=== PATIENT | female | born 1985 | race American Indian/Alaskan Native ===

== ENCOUNTER 2017-11-08 17:16 | Emergency (ER) | payer SELFPAY ==
[2017-11-08] MEDS ORDERED: ASPIRIN PO ONE (17:33)
[2017-11-08 18:09] LABS: Basophils # (Auto) 0.1 K/mm3 (0.0-0.1); Eosinophils # (Auto) 0.2 K/mm3 (0.0-0.4); Eosinophils % (Auto) 2.2 % (0.0-4.3); Hematocrit 29.5 % (30.3-42.9); Hemoglobin 9.3 gm/dl (10.1-14.3); Lymphocytes # (Auto) 1.8 K/mm3 (1.2-5.4); Lymphocytes % (Auto) 26.1 % (13.4-35.0); Mean Corpuscular HGB Conc 31 % (30-34); Mean Corpuscular Volume 75 fl (79-97); Monocytes # (Auto) 0.5 K/mm3 (0.0-0.8); Monocytes % (Auto) 6.9 % (0.0-7.3); Platelet Count 358 K/mm3 (140-440); Red Blood Count 3.92 M/mm3 (3.65-5.03); Red Cell Distribution Width 16.4 % (13.2-15.2)
[2017-11-08 18:14] LABS: Mean Corpuscular Hemoglobin 24 pg (28-32)
[2017-11-08 18:18] LABS: BUN/Creatinine Ratio 9; Blood Urea Nitrogen 9 mg/dL (7-17); Calcium 9.5 mg/dL (8.4-10.2); Hemolysis Index 0
--- NOTE | 2017-11-08 21:31 | Emergency Department Report ---
ED Syncope HPI - General Chief Complaint: Dizziness Stated Complaint: DIZZY Time Seen by Provider: 11/08/17 21:15 Source: patient - History of Present Illness Initial Comments: Ms. Bowden is 32 yo female with hx of HTN and NIDDM. She had a syncopal episode 3 days ago on Saturday. After coming out of the shower, she felt hot and lightheaded. She felt flushed. She laid down in the bed. She then decided to get out of bed. she took a few steps and passed out. Witnessed by aunt, LOC lasted on a brief moment. No associated chest pain shortness of breath or palpitations. [place] [facility] [place] here in [place]. She also has had bilateral feet swelling for the last several weeks. She normally takes hydrochlorothiazide and amlodipine. However she does not have these medications. She stated that lisinopril made her lips well. Timing/Prior Episodes: recent history Precipitating Factors: Positive: other (felt flushed felt hot) Context: standing Loss of Consciousness: brief (seconds) - Related Data Allergies/Adverse Reactions: Allergies No Known Allergies Allergy (Verified 11/08/17 17:29) Home Medications: Ambulatory Orders Cephalexin [Keflex] 500 mg PO Q12HR 5 Days #15 cap 11/08/17 Hydrochlorothiazide [HCTZ] 25 mg PO QDAY #30 tablet 11/08/17 amLODIPine [Norvasc] 5 mg PO DAILY #30 tab 11/08/17 metFORMIN [Glucophage] 0.5 tab PO BID #30 tablet 11/08/17 ED Review of Systems ROS: Stated complaint: DIZZY Other details as noted in HPI Comment: All other systems reviewed and negative Constitutional: denies: fever, malaise Respiratory: denies: cough Cardiovascular: denies: chest pain Gastrointestinal: denies: abdominal pain, vomiting ED Past Medical Hx - Past Medical History Previous Medical History?: Yes Hx Hypertension: Yes Hx Diabetes: Yes - Surgical History Past Surgical History?: Yes Additional Surgical History: c sections - Social History Smoking Status: Never Smoker Substance Use Type: None, Marijuana - Medications Home Medications: Home Medications Medication Instructions Recorded Confirmed Last Taken Type Cephalexin [Keflex] 500 mg PO Q12HR 5 Days #15 cap 11/08/17 Unknown Rx Hydrochlorothiazide [HCTZ] 25 mg PO QDAY #30 tablet 11/08/17 Unknown Rx amLODIPine [Norvasc] 5 mg PO DAILY #30 tab 11/08/17 Unknown Rx metFORMIN [Glucophage] 0.5 tab PO BID #30 tablet 11/08/17 Unknown Rx ED Physical Exam - General Limitations: No Limitations General appearance: alert, in no apparent distress - Head Head exam: Present: atraumatic, normocephalic - Eye Eye exam: Present: normal appearance - ENT ENT exam: Present: mucous membranes moist - Neck Neck exam: Present: normal inspection. Absent: tenderness, meningismus - Respiratory Respiratory exam: Present: normal lung sounds bilaterally. Absent: respiratory distress, wheezes, rales, rhonchi - Cardiovascular Cardiovascular Exam: Present: regular rate, normal rhythm, normal heart sounds. Absent: systolic murmur, diastolic murmur, rubs, gallop - GI/Abdominal GI/Abdominal exam: Present: soft, normal bowel sounds. Absent: distended, tenderness, guarding, rebound - Extremities Exam Extremities exam: Present: normal inspection, other (2+ DP pulses no ankle or foot edema present). Absent: pedal edema - Back Exam Back exam: Present: normal inspection - Neurological Exam Neurological exam: Present: alert, oriented X3, normal gait - Psychiatric Psychiatric exam: Present: normal affect, normal mood - Skin Skin exam: Present: warm, dry, intact, normal color. Absent: rash ED Course Vital Signs 11/08/17 17:30 Temperature 98.4 F Pulse Rate 88 Respiratory 16 Rate Blood Pressure 141/96 O2 Sat by Pulse 96 Oximetry ED Medical Decision Making - Lab Data Result diagrams: 11/08/17 17:50 11/08/17 17:50 Laboratory Results - last 24 hr 11/08/17 11/08/17 17:50 17:50 WBC 7.1 RBC 3.92 Hgb 9.3 L Hct 29.5 L MCV 75 L MCH 24 L MCHC 31 RDW 16.4 H Plt Count 358 Lymph % (Auto) 26.1 Coal % (Auto) 6.9 Eos % (Auto) 2.2 Baso % (Auto) 1.0 Lymph # 1.8 Coal # 0.5 Eos # 0.2 Baso # 0.1 Seg Neutrophils % 63.8 Seg Neutrophils # 4.5 Sodium 141 Potassium 3.8 Chloride 98.7 Carbon Dioxide 30 Anion Gap 16 BUN 9 Creatinine 1.0 Estimated GFR > 60 BUN/Creatinine Ratio 9 Glucose 136 H Calcium 9.5 Troponin T < 0.010 - EKG Data -: EKG Interpreted by Me EKG shows normal: sinus rhythm, axis, intervals, QRS complexes, ST-T waves Rate: normal - EKG Data Interpretation: normal EKG 11/08/17 21:31 NSR nl rate nl axis nl intervals no ST-T signs of ischemia no ST elevation rate 75 beats a minute no signs of pericarditis no signs of heart strain - Medical Decision Making Mrs. Bowden presents with vasovagal syncope after getting out of a hot shower associated with position change. No indication of PE or arrhythmia. not likely with current menstruation. Bilateral lower extremity edema which improves after elevation possibly an adverse effect of amlodipine. Also possible rebound swelling after cessation of hydrochlorothiazide. She politely requests refills of medications including metformin, hydrochlorothiazide and amlodipine. She is new to the area from [place]. She has yet to establish primary care. I have referred her to outside clinic. She is also concern for UTI. I have provided prescription for Keflex and her home medications. I also provided education. She stated lisinopril made her lips well. I told her that she is indeed allergic to this medication. She understands that she should never take this medication in the future. Critical care attestation.: If time is entered above; I have spent that time in minutes in the direct care of this critically ill patient, excluding procedure time. ED Disposition Clinical Impression: Syncope, Medication refill, UTI (urinary tract infection), Edema of both legs Disposition: TO HOME OR SELFCARE Is pt being admited?: No Does the pt Need Aspirin: No Condition: Stable Instructions: Syncope (ED), Leg Edema (ED), Angioedema (ED) Prescriptions: amLODIPine [Norvasc] 5 mg PO DAILY #30 tab Cephalexin [Keflex] 500 mg PO Q12HR 5 Days #15 cap Hydrochlorothiazide [HCTZ] 25 mg PO QDAY #30 tablet metFORMIN [Glucophage] 0.5 tab PO BID #30 tablet Referrals: [facility] [Outside] - 3-5 Days Time of Disposition: 21:39
[2017-11-08 22:15] VITALS: BP 138/87
== END 2017-11-08 21:45 | disposition home or self-care (01) ==
LOC: ED 17:16
DX: R55 Syncope and collapse (principal); N39.0 Urinary tract infection, site not specified; R60.9 Edema, unspecified; Z76.0 Encounter for issue of repeat prescription; I10 Essential (primary) hypertension; E11.9 Type 2 diabetes mellitus without complications; F12.90 Cannabis use, unspecified, uncomplicated
CPT/HCPCS: 36415; 80048; 84484; 85025; 93005; 93010; 99284